=== PATIENT | female | born 1980 | race Caucasian/White ===

== ENCOUNTER → 2017-01-06 | Outpatient (CLI) | payer OTHER ==
[~2017-01-06] MED LIST: CYCL-259 PO; LAMO25TA13 PO; LITH300T3 PO; TRAM-28 PO; TRAZ50TA18 PO
== END | disposition home or self-care (01) ==
LOC: EDSTATUS 01-04 15:15 → CFH 09:21
PROVIDERS: ATTEND Obstetrics & Gynecology
DX: Z12.31 Encounter for screening mammogram for malignant neoplasm of breast (principal)
CPT/HCPCS: G0202